=== PATIENT | male | born 1945 | race Caucasian/White ===

== ENCOUNTER → 2019-07-19 | Outpatient (CLI) | payer MEDICARE ==
--- NOTE | 2019-07-22 11:01 | REP ---
Clinical: Lower back pain. Technique: AP, lateral, bilateral oblique, and coned-down views of the lumbosacral spine. Findings: Evaluation is significantly limited due to overlying bowel pattern with considerable residual fecal material obscuring the underlying lumbar spine. Osteopenia and moderate multilevel degenerative changes along with hypertrophic facet changes are appreciated. No obvious acute fracture / compression injury or subluxation. Impression: Limited examination demonstrates osteopenia and moderate multilevel degenerative changes. Electronically Signed by Óscar Michael MD 07/22/2019 10:53 A
== END ==
LOC: M WUC 09:37
PROVIDERS: ATTEND Nurse Practitioner Family
DX: M54.5 Low back pain (principal); M85.80 Other specified disorders of bone density and structure, unspecified site; Z79.899 Other long term (current) drug therapy